=== PATIENT | female | born 1945 | race Caucasian/White ===

== ENCOUNTER 2023-09-15 08:24 | Outpatient (CLI) | payer MEDICARE, BC | END 2023-09-15 08:25 | disposition home or self-care (01) | LOC: ULT 08:24 | PROVIDERS: ATTEND Family Medicine | DX: E83.52 Hypercalcemia (principal); E03.9 Hypothyroidism, unspecified; N39.0 Urinary tract infection, site not specified; R31.9 Hematuria, unspecified | CPT/HCPCS: 74177; 76536 ==

== ENCOUNTER 2024-04-22 12:52 | Outpatient (CLI) | payer MEDICARE ==
[2024-04-22] MEDS ORDERED: Barium Sulfate 96% 176 GM BOT (xray ONLY) ONE (13:22)
[2024-04-22] MEDS ORDERED: E-Z-HD 98% W/W 340GM BOT (x-ray ONLY) ONE (13:22)
== END 2024-04-22 12:53 | disposition home or self-care (01) ==
LOC: RAD 12:52
PROVIDERS: ATTEND Internal Medicine Gastroenterology
DX: R13.12 Dysphagia, oropharyngeal phase (principal); K44.9 Diaphragmatic hernia without obstruction or gangrene; K21.9 Gastro-esophageal reflux disease without esophagitis; K22.2 Esophageal obstruction; K22.5 Diverticulum of esophagus, acquired
CPT/HCPCS: 74220